=== PATIENT | female | born 1975 | race Caucasian/White ===

== ENCOUNTER 2017-02-07 02:31 | Emergency (ER) | payer OTHER ==
--- NOTE | ~2017-02-07 | CR181 ---
[facility] A Service of [facility] & [facility] RADIOLOGY TEXT RESULTS PATIENT: ENA LESTER LOCATION: [facility] : 77 UNIT #: [id number] AGE: [address]: Lucita Gurrola APRN SEX: F ORDER DR: [id number] [facility] [address] [place], [place] [address] [id number] E MR#: [id number] Acc #: [id number] NAME: ENA LESTER : 1975 SEX: F STUDY DATE/TIME: 02/07/2017 04:12 UNIT: [facility] ROOM: STUDY DESCRIPTION: CR Lumbar Spine 2 or 3 Views Attending Physician: Lucita Gurrola A.P.R.N. Ordering Physician: Lucita Gurrola A.P.R.N. Primary Care Physician: Primary Care Physician No MEDICAL IMAGING REPORT This report is preliminary unless electronic signature is present EXAM Lumbar spine 02/07/2017 04:12 INDICATION Low back pain after fall 3 weeks ago. COMPARISON 03/15/2015. FINDINGS AP and lateral projections of the lumbar segment show good mineralization of both anterior and posterior elements. They are all anatomically normal without indication of fracture, dislocation, or malignant change of a sclerotic or lytic type. There is no congenital defect noted. The sacroiliac joints are normal. IMPRESSION Normal lumbar spine. Dictated by... Tr Liang Jr., M.D. THIS IS AN ELECTRONICALLY VERIFIED REPORT Tr Liang Jr., M.D. at 02/08/2017 6:00 AM GUIDO/j luis TD: 02/07/2017 06:21 JOB #: [id number] MEDICAL IMAGING REPORT Page 1 of 1 COPY
--- NOTE | ~2017-02-07 | CR150 ---
[facility] A Service of [facility] & [facility] RADIOLOGY TEXT RESULTS PATIENT: ENA LESTER LOCATION: [facility] : 77 UNIT #: [id number] AGE: [address]: Lucita Gurrola APRN SEX: F ORDER DR: [id number] [facility] [address] [place], [place] [address] [id number] E MR#: [id number] Acc #: [id number] NAME: ENA LESTER : 1975 SEX: F STUDY DATE/TIME: 02/07/2017 04:10 UNIT: [facility] ROOM: STUDY DESCRIPTION: CR Hip Min 2 Views Lt Attending Physician: Lucita Gurrola A.P.R.N. Ordering Physician: Lucita Gurrola A.P.R.N. Primary Care Physician: Primary Care Physician No MEDICAL IMAGING REPORT This report is preliminary unless electronic signature is present EXAM Left hip and pelvis on 02/07 at 04:10 INDICATIONS Left hip pain for 3 weeks after a fall. FINDINGS AP pelvis was obtained in addition to a frog-leg left hip. No fracture or malalignment is seen. Femoral heads are normal without osteonecrosis. IMPRESSION Negative pelvis and left hip. Dictated by... Tr Liang Jr., M.D. THIS IS AN ELECTRONICALLY VERIFIED REPORT Tr Liang Jr., M.D. at 02/08/2017 6:00 AM GUIDO/zelda TD: 02/07/2017 06:19 JOB #: [id number] MEDICAL IMAGING REPORT Page 1 of 1 COPY
[~2017-02-07 02:31] MED LIST: ACTOS15 MG PO; GABAPENTIN600 MG PO; IBUPROFEN800 MG PO; LISINOPRIL10 MG PO; METFORMIN HCL500 M1 PO; NEXIUM20 MG PO; NOVOLOG100 U/ML SQ; OMEPRAZOLE40 M1 PO; PEN-VEE K PO; PHENERGAN25 MG PO; [UNRECOGNIZED DRUG - OTHER]
[2017-02-07 04:16] LABS: URINE SOURCE CLEAN CATCH
[2017-02-07 04:23] LABS: URINE APPEARANCE CLEAR; URINE BILIRUBIN NEG (NEG); URINE BLOOD TRACE (NEG); URINE COLOR YELLOW; URINE GLUCOSE >1000 MG/DL (NEG); URINE KETONE TRACE (NEG); URINE LEUKOCYTE ESTERASE NEG (NEG); URINE NITRATE NEG (NEG); URINE PROTEIN NEG (NEG); URINE SPECIFIC GRAVITY 1.045 (1.003-1.035); URINE UROBILINOGEN 0.2 MG/DL (NEG)
[2017-02-07 04:25] LABS: CULTURE INDICATED? YES; URINE BACTERIA AUWI 1+ (NEGATIVE); URINE SQUAMOUS EPITHELIAL CELL OCC /[HPF]
[2017-02-07 04:34] LABS: URINE YEAST PRESENT
== END 2017-02-07 05:15 | disposition home or self-care (01) ==
LOC: CED 02:31
PROVIDERS: Nurse Practitioner
DX: M54.42 Lumbago with sciatica, left side (principal); E11.9 Type 2 diabetes mellitus without complications; I10 Essential (primary) hypertension; F32.9 Major depressive disorder, single episode, unspecified; Z88.6 Allergy status to analgesic agent; F17.210 Nicotine dependence, cigarettes, uncomplicated; Z79.899 Other long term (current) drug therapy; Z79.4 Long term (current) use of insulin
CPT/HCPCS: 72100; 73502; 81003; 82947; 84703; 87086; 96372; 99283; J1885